=== PATIENT | female | born 2000 ===

== ENCOUNTER 2024-02-08 22:51 | Inpatient (IN) ==
[2024-02-09] MEDS ORDERED: miSOPROStoL 200 MCG TABLET BC PRN (00:49)
[2024-02-09] MEDS ORDERED: hydrALAZINE INJ 20 MG/ML VIAL IVP PRN (00:49)
[2024-02-09] MEDS ORDERED: NIFEdipine 10 MG CAPSULE PO PRN (00:49)
[2024-02-09] MEDS ORDERED: TRANEXAMIC ACID IN NACL 1,000 MG/100 ML BAG IV PRN (00:49)
[2024-02-09] MEDS ORDERED: LABETALOL 20 MG/4 ML SYRINGE IVP PRN ×3 (00:49)
[2024-02-09] MEDS ORDERED: METHYLERGONOVINE 0.2 MG/ML VIAL IM PRN (00:49)
[2024-02-09] MEDS ORDERED: TERBUTALINE 1 MG/ML VIAL SUBQ PRN (00:49)
[2024-02-09] MEDS ORDERED: lidocaine 1% 20 ML MDV ID PRN (00:49)
[2024-02-09] MEDS ORDERED: SODIUM CHLORIDE FLUSH 0.9% 10 ML SYRINGE IVP PRN (00:49)
[2024-02-09] MEDS ORDERED: OXYTOCIN/SODIUM CHLORIDE 500 ML IV PRN (00:49)
[2024-02-09] MEDS ORDERED: OXYTOCIN 10 UNIT/ML VIAL IM PRN (00:49)
[2024-02-09 01:29] LABS: BASOPHILS # (AUTO) 0.1 10^3/uL (0.0-0.1); BASOPHILS % (AUTO) 0.4 %; EOSINOPHILS # (AUTO) 0.1 10^3/uL (0.0-0.7); EOSINOPHILS % (AUTO) 0.5 %; HCT - HEMATOCRIT 31.3 % (37.0-47.0); HGB - HEMOGLOBIN 10.3 g/dL (12.0-16.0); LYMPHOCYTES # (AUTO) 3.2 10^3/uL (1.5-3.5); LYMPHOCYTES % (AUTO) 23.7 %; MEAN CORPUSCULAR HEMOGLOBIN 27.6 pg (27.0-31.0); MEAN CORPUSCULAR HGB CONC 32.9 g/dL (32.0-36.0); MEAN CORPUSCULAR VOLUME 83.9 fL (81.0-99.0); MEAN PLATELET VOLUME 9.4 fL (7.9-10.8); MONOCYTES # (AUTO) 1.3 10^3/uL (0.0-1.0); MONOCYTES % (AUTO) 9.3 %; NEUTROPHILS # (AUTO) 8.8 10^3/uL (1.5-6.6); NEUTROPHILS % (AUTO) 65.5 %; PLT - PLATELET COUNT 315 10^3/uL (130-450); RED BLOOD COUNT 3.73 10^6/uL (4.20-5.40); RED CELL DISTRIBUTION WIDTH 15.4 % (12.0-15.0); WHITE BLOOD COUNT 13.4 x10^3/uL (4.8-10.8)
[2024-02-09] MEDS: fentaNYL 100 MCG/2 ML VIAL IVP PRN (02:09)
[2024-02-09] MEDS: SODIUM CHLORIDE FLUSH 0.9% 10 ML SYRINGE IVP SCH (02:23)
[2024-02-09] MEDS: OXYTOCIN/SODIUM CHLORIDE 500 ML IV PRN (03:45)
[2024-02-09] MEDS ORDERED: SIMETHICONE CHEW 80 MG TABLET PO PRN (04:02)
[2024-02-09] MEDS ORDERED: WITCH HAZEL/GLYCERIN 1 PAD TOP PRN (04:02)
[2024-02-09] MEDS ORDERED: HYDROCORTISONE 1% CREAM 28 GM TUBE TOP PRN (04:02)
--- NOTE | 2024-02-09 04:09 | HISTORY & PHYSICAL EXAMINATION ---
Admit History Visit Reason Visit Reason: Contractions : 2 Parity: 0 Care: positive [facility] Risk/History: positive None Complications This : positive None Smoking Status: Never smoker Mother's Labs Mother's Blood Type: positive O Mother's RH: positive Positive GBS: positive Group B Step Negative Rubella Status: positive Immune HPI Diagnosis/Indication for NST: Post-dates gestation Current : Current EDU 02/04/24 Gestation 40 Weeks and 4 Days Para 0 Vital Signs Temperature 36.9 C 02/08/24 22:59 Pulse Rate 98 H 02/08/24 22:59 Respiratory Rate 14 02/08/24 22:59 Blood Pressure 112/60 02/08/24 22:59 Temperature 36.9 C 02/08/24 22:59 Pulse Rate 98 H 02/08/24 22:59 Respiratory Rate 14 02/08/24 22:59 Blood Pressure 112/60 02/08/24 22:59 NST Procedure NST Procedure: NST Procedure Start Date 02/08/24 Start Time 22:57 Stop Time 23:20 Vibroacoustic Stimulation Used No Patient States Movement Yes EFM: 130s, moderate variability, positive 15x15 accelerations [place]: contractions q2 Results and Plan Findings/Impression: NST reactive Plan: Admit for labor Meds/Allgy Home Medications Ambulatory Orders Medication Instructions Recorded Confirmed ferrous sulfate 325 mg (65 mg 325 mg PO QDAY 02/01/24 02/07/24 iron) tablet (FeroSul) vits no.126-ferrous fum tab PO 02/01/24 02/07/24 28 mg iron-folic acid 800 mcg tablet (Classic ) Allergies Allergies Allergy/AdvReac Type Severity Reaction Status Date / Time No Known Drug Allergies Allergy Verified 01/31/24 15:00 [facility] Family History Family History (Updated 01/31/24 @ 14:59 by Sophia Nettles MA) Aunt Diabetes Maternal grandmother Diabetes Social History Social History (Updated 01/31/24 @ 16:25 by Sophia Nettles MA) Smoking Status: Never smoker Do you vape?: No ETOH Use: None Substance Use: denies use POLST POLST Status: Full Code Review of Systems Status of ROS: 10 or more systems reviewed and unremarkable except as noted in history and below Physical Abdominal Exam Vital Signs: Temp Pulse Resp BP 36.9 C 98 H 14 112/60 02/08/24 22:59 02/08/24 22:59 02/08/24 22:59 02/08/24 22:59 Contraction Frequency (min/apart): 2 Contraction Intensity: positive Moderate Uterine Resting Tone: positive Soft Monitoring Heart Rate Baseline: 130 Strip Review: positive Category I Presentation Presentation: positive Vertex Vaginal Exam Membranes: positive Membranes intact Dilation (in cm): 5 Effacement (%): 100 Station: positive -2 Cervical Position: positive Midposition Plan for Labor Plan For Labor I expect patient to be DC'd or transferred within 96 hours.: Yes Plan for Labor: 23yo at 40.5w in active labor - Received morphine and rested earlier today, now in active labor - Admit - CBC, T&S - Anticipate Conclusion/Plan Problem List (1) Anemia affecting in third trimester: Plan: Taking iron, prenatals (2) Post-dates : Plan: Admit for active labor Plan Anticipate Lab Results 02/09/24 01:20
[2024-02-09] MEDS: miSOPROStoL 200 MCG TABLET PR PRN (04:14)
--- NOTE | 2024-02-09 04:21 | DELIVERY NOTE ---
Delivery Note Labor Labor: positive Spontaneous Infant Delivery Method Infant Delivery Method: positive Spontaneous vaginal delivery Presentation Presentation: positive Vertex Nuchal Cord Nuchal Cord: positive None Amniotic Fluid Description Amniotic Fluid Description: positive Clear Laceration Laceration: positive 1st degree (Not repaired) Delivery Outcome Delivery Outcome: positive Livebirth [place]: positive Placed in direct skin contact with mother and [place] used sex: positive Male Cord Cord: positive 3 vessels Placenta Placenta: positive Intact and Spontaneous Estimated Blood Loss Estimated Blood Loss (in cc): 500 Delivery Comments (Free Text/Narrative) Delivery Comments (Free Text/Narrative): 10/100/0 and pushed over few contractions. Head and body delivered. Placed on mother's abdomen. Delayed cord clamping. Placenta delivered spontaneously and intact, 3vc. Fundus firm. Bleeding encountered. Pitocin infusing. Bimanual massage. Clots expressed and bleeding then decreased. Vagina and perineum inspected- first degree laceration noted, not bleeding and not repaired. Hemostasis. Misoprostol 800mcg placed DC. QBl 500cc. Family bonding at bedside.
[2024-02-09] MEDS: LACTATED RINGERS 1,000 ML IV PRN (07:24)
--- NOTE | 2024-02-09 08:48 | PHARMACY PROGRESS NOTE ---
Best Possible Medication History Admit Date and Time: 02/09/24 [id number] [facility] Statement: As the person ultimately responsible for medication therapy, providers are able to order a medication from an existing home medication list in [facility] via the "Reconcile Routine" prior to Confirmation of that medication by ict support engineer. Such practice is discouraged except when the physician, in their clinical judgment, deems that a medical need exists for a medication without regard to previous use.
[2024-02-09] MEDS: DOCUSATE SODIUM 100 MG CAPSULE PO SCH (08:51)
[2024-02-09] MEDS: IBUPROFEN 600 MG TABLET PO PRN (08:51)
[2024-02-09] MEDS: ACETAMINOPHEN 500 MG TABLET PO PRN (08:51)
--- NOTE | 2024-02-10 10:23 | Discharge Summary ---
Discharge Summary Admit Date: 02/09/24 Discharge Date: 02/10/24 Discharging Provider: Shan Hagan MD DIAGNOSES Admission Diagnoses: Term labor 40 weeks gestation Discharge Diagnoses with Status of Each Condition: Deliver live vickers Status post spontaneous vaginal delivery HPI History of Present Illness: Subjective Patient reports she is doing well. Lochia appropriate. Denies heavy bleeding. Ambulating. Pelvic and abdominal pain well-controlled. Tolerating oral intake. Diet: Regular. Voiding without difficulty. Passing flatus. Denies BM. Patient is bonding with baby in room Breast feeding going well. Denies feeling lightheaded, dizzy or excessively fatigued. Objective General: Alert, oriented, no apparent distress. Cardiovascular: Regular rate. Regular rhythm. Lungs: No increased work of breathing. Abdomen: Uterus firm. Below umbilicus. No guarding or rebound. Extremities: No pain on palpation. No cords palpated. Distal pulses intact. HOSPITAL COURSE Hospital Course: Patient was admitted at 40 weeks 4 days gestation in active labor. She had contractions for several days, and may change in admission was 5 cm. She progressed quickly to complete and had a precipitous, en caul delivery. course was uncomplicated and she was discharged on day 1. ALLERGIES Allergies Allergy/AdvReac Type Severity Reaction Status Date / Time No Known Drug Allergies Allergy Verified 01/31/24 15:00 MEDICATIONS Ambulatory Orders Medication Instructions Recorded Confirmed ferrous sulfate 325 mg (65 mg 325 mg PO QDAY 02/01/24 02/09/24 iron) tablet (FeroSul) vits no.126-ferrous fum 1 tab PO DAILY 02/01/24 02/09/24 28 mg iron-folic acid 800 mcg tablet (Classic ) LABS 02/09/24 01:20 FOLLOW UP Follow Up: With [facility] care in 1 week TIME SPENT Time Spent in Discharge (Minutes): 20 Discharge Plan Discharge Patient Disposition: Home, Self Care Prescriptions: No Action Classic 28 mg iron- 800 mcg tablet 1 tab PO DAILY ferrous sulfate [FeroSul] 325 mg (65 mg iron) tablet 325 mg PO QDAY Print Language: Yi/Castilian Patient Instructions: Vaginal After, Depression Follow-up Care: Tina Madrid MD [Primary Care Provider] -
--- NOTE | 2024-02-10 10:26 | PROVIDER PROGRESS NOTE ---
Subjective Subjective Subjective: Subjective Patient reports she is doing well. Lochia appropriate. Denies heavy bleeding. Ambulating. Pelvic and abdominal pain well-controlled. Tolerating oral intake. Diet: Regular. Voiding without difficulty. Passing flatus. Denies BM. Patient is bonding with baby in room Breast feeding going well. Denies feeling lightheaded, dizzy or excessively fatigued. Objective General: Alert, oriented, no apparent distress. Cardiovascular: Regular rate. Regular rhythm. Lungs: No increased work of breathing. Abdomen: Uterus firm. Below umbilicus. No guarding or rebound. Extremities: No pain on palpation. No cords palpated. Distal pulses intact. Current Medications Current Medications Current Medications: Current Medications Generic Name Dose Route Start Last Admin Trade Name Freq PRN Reason Stop Dose Admin Acetaminophen 1,000 mg 02/09/24 00:49 02/10/24 09:35 Acetaminophen 500 Mg Tablet PO 1,000 mg Q8H PRN Administration Mild Pain or Fever>38C(100.4F) Acetaminophen 1,000 mg 02/09/24 04:02 Acetaminophen 500 Mg Tablet PO Q8HR PRN Mild Pain or Fever>38C(100.4F) Docusate Sodium 100 mg 02/09/24 09:00 02/10/24 08:31 Docusate Sodium 100 Mg Capsule PO 100 mg BID JEM Administration Hydrocortisone 1 applic 02/09/24 04:02 Hydrocortisone 1% Cream 28 Gm Tube TOP QID PRN Hemorrhoids Lactated Ringer's 500 mls @ 999 mls/hr 02/09/24 00:49 02/09/24 07:24 Lr IV 999 mls/hr PRN PRN Administration Per Policy Oxytocin/Sodium Chloride 500 mls @ 999 mls/hr 02/09/24 00:49 Pitocin/Sodium Chloride IV PRN PRN POST- HEMORR PREVENTION Protocol 999 MILLIUNIT/MIN Tranexamic Acid 1,000 mg in 100 mls @ 600 mls/hr 02/09/24 00:49 Tranexamic 1,000 Mg/100ml-Nacl IV Q30M PRN EBL >1200mL and within 3hr Oxytocin/Sodium Chloride 500 mls @ 999 mls/hr 02/09/24 04:02 02/09/24 04:18 Pitocin/Sodium Chloride IV Infused PRN PRN Titration POST- HEMORR PREVENTION Protocol 999 MILLIUNIT/MIN Ibuprofen 600 mg 02/09/24 04:02 02/10/24 09:34 Ibuprofen 600 Mg Tablet PO 600 mg Q6HR PRN Administration Moderate Pain (Level 4-6) Lidocaine HCl 20 ml 02/09/24 00:49 Lidocaine 1% 20 Ml Mdv ID 02/12/24 00:49 .ONCE PRN PERINEAL REPAIR Simethicone 80 mg 02/09/24 04:02 Simethicone Chew 80 Mg Tablet PO TID PRN Gas Sodium Chloride 10 ml 02/09/24 00:49 Sodium Chloride Flush 0.9% 10 Ml Syringe IVP PRN PRN NEEDED PER PROVIDER ORDERS Sodium Chloride 10 ml 02/09/24 01:00 02/09/24 02:23 Sodium Chloride Flush 0.9% 10 Ml Syringe IVP 10 ml Q8H JEM Administration [place]/Glycerin 1 pad 02/09/24 04:02 [place]/Glycerin 1 Pad TOP PRN PRN ITCHING Objective Vital Signs/Intake & Output Vital Signs: Vital Signs x48h Temp Pulse Resp BP Pulse Ox 02/10/24 09:36 36.7 C 76 16 121/67 99 Intake & Output: Intake & Output 02/08/24 02/09/24 02/10/24 02/11/24 05:59 05:59 05:59 05:59 Intake Total 500 / 500 900 / 900 Output Total 801 / 801 Balance 500 / 500 99 / 99 Weight (kg) 177 lb 0.005 oz Lab Results 02/09/24 01:20 Assessment/Plan Problem List (1) (spontaneous vaginal delivery): Impression: day 1. -Routine care -Anticipate discharge tomorrow (2) Delivery outcome of liveborn infant: Impression: As above (3) Anemia affecting in third trimester: Impression: Continue ferrous sulfate on discharge (4) Post-dates : Impression: Delivered
[2024-02-10 22:15] VITALS: O2SAT 100
[2024-02-11] MEDS: ACETAMINOPHEN 500 MG TABLET PO PRN (11:52)
--- NOTE | 2024-02-11 13:40 | Discharge Summary ---
Discharge Summary Admit Date: 02/08/24 Discharge Date: 02/11/24 Discharging Provider: Bushra Calero MD DIAGNOSES Admission Diagnoses: - Active labor - Anemia in Discharge Diagnoses with Status of Each Condition: Same, s/p HOSPITAL COURSE Hospital Course: Patricia is a 23 yo who presented in active labor at 40w5d. She had an uncomplicated , EBL 500cc. course has also been uncomplicated. Condition on Discharge: SUBJECTIVE: day 2 s/p The patient feels well. Pain is well controlled with current medications. The baby is doing well. Baby is feeding via . She is ambulating well, tolerating normal diet, urinating without difficulty. Lochia is reported as similiar to a period. OBJECTIVE: Vital signs reviewed GENERAL: NAD CHEST: non labored respirations ABD: soft, non tender, fundus firm EXT: no evidence of DVT LAB & IMAGING STUDIES: See below PLAN: Plan for discharge home with follow up in clinic in 1 week. Patricia plans to use Nexplanon for control, discussed placement at 6wk visit. ALLERGIES Allergies Allergy/AdvReac Type Severity Reaction Status Date / Time No Known Drug Allergies Allergy Verified 01/31/24 15:00 MEDICATIONS Ambulatory Orders Medication Instructions Recorded Confirmed ferrous sulfate 325 mg (65 mg 325 mg PO QDAY 02/01/24 02/09/24 iron) tablet (FeroSul) vits no.126-ferrous fum 1 tab PO DAILY 02/01/24 02/09/24 28 mg iron-folic acid 800 mcg tablet (Classic ) LABS 02/09/24 01:20 TIME SPENT Time Spent in Discharge (Minutes): 20 Discharge Plan Discharge Patient Disposition: Home, Self Care Prescriptions: Continued Classic 28 mg iron- 800 mcg tablet 1 tab PO DAILY ferrous sulfate [FeroSul] 325 mg (65 mg iron) tablet 325 mg PO QDAY Print Language: Greenlandic/Castilian Patient Instructions: Vaginal After, Depression Follow-up Care: Tina Madrid MD [Primary Care Provider] -
--- NOTE | 2024-02-11 16:19 | Labor Flowsheet ---
Labor Flowsheet Datetime Report Generated by CPN: 02/11/2024 16:19 Datetime: 02/11/2024 07:33 VITAL SIGNS NBP Sys/Cathy/Mean (mmHg): 114 : 63 : 75 Pulse: 85 Datetime: 02/10/2024 16:30 SpO2 (%): 99 Datetime: 02/09/2024 06:00 Stage of : MATERNAL ASSESSMENT Level of Consciousness: Alert DTR's/Clonus: DTRs 2+ Headache: Denies Nausea/Vomiting: Denies Datetime: 02/09/2024 05:01 Temperature (C): 37.6 Datetime: 02/09/2024 04:45 PAIN Pain Presence: None/Denies Datetime: 02/09/2024 04:28 Membranes Ruptured Date/Time: 02/09/2024 03:27 Membranes Rupture Method: Spontaneous Amniotic Fluid Color: Clear Amniotic Fluid Amount: Large Amniotic Fluid Odor: Normal Datetime: 02/09/2024 03:38 LaborFlag: Labor Datetime: 02/09/2024 03:26 Comments: 120 Preparation for Delivery: Setup for Delivery Datetime: 02/09/2024 03:21 STAGE 2 Pushing: Coached on Pushing; Urge to Push Pushing Position: Pushing with Contractions Pushing Progress: Descent with Pushing Datetime: 02/09/2024 03:13 COMMUNICATION Communication: Call/Page Placed to Provider Provider Notified (Name): Dr Cayabyab Notification Reason: Status Update; Labor Status; Membrane Status Communication Comments: TC to provider to inform that pt is complete with BBOW Datetime: 02/09/2024 03:12 Cervix, Consistency: Firm Cervix, Position: Anterior Datetime: 02/09/2024 03:00 ASSESSMENT A Monitor Mode: Doppler Datetime: 02/09/2024 02:39 Temperature Route: Axillary Datetime: 02/09/2024 02:10 MEDICATIONS Analgesics/Sedatives: Fentanyl (mcg) @ 50 Datetime: 02/09/2024 02:00 VAGINAL EXAM Dilatation (cm): 6.0 Effacement (%): 90 Station: 0 Exam by: Wilma H RN Membrane Status: Bulging Datetime: 02/09/2024 01:46 Medication Comments: nitrous Datetime: 02/09/2024 01:30 UTERINE ACTIVITY Monitor Mode: External Frequency (min): 2-5 Quality: Moderate Pattern: Normal: <= 5 Contractions in 10 Minutes Resting Tone (Palpate): Relaxed Datetime: 02/08/2024 23:20 Duration (sec): 80-120 Monitor Interventions for FHR: Ultrasound Adjusted FHR Baseline Rate : 125 Variability: Moderate 6-25 bpm Accelerations: 15X15 Decelerations: None Category: Category I
== END 2024-02-11 14:30 | disposition home or self-care (01) | DRG 807 ==
LOC: WFO 22:51 → FBP 22:55
PROVIDERS: ADMIT Obstetrics & Gynecology; ATTEND Obstetrics & Gynecology
DX: Z37.0 Single live birth; Z3A.40 40 weeks gestation of pregnancy; O48.0 Post-term pregnancy; O99.02 Anemia complicating childbirth; O70.0 First degree perineal laceration during delivery